=== PATIENT | male | born 1950 | race Caucasian/White ===

== ENCOUNTER 2020-11-04 21:58 | Emergency (ER) | payer MEDICARE, OTHER ==
[2020-11-04] MEDS ORDERED: diphenhydrAMINE 25 MG Cap PO ONE (23:27)
[2020-11-04] MEDS ORDERED: predniSONE 20 MG Tab PO ONE (23:27)
[2020-11-04] MEDS ORDERED: Famotidine 20 MG Tab PO ONE (23:27)
--- NOTE | 2020-11-04 23:35 | EDM.PDOC ---
ED HPI GENERAL MEDICAL PROBLEM - General Chief Complaint: Skin Complaint Stated Complaint: BEE STING R HAND SWOLLEN Time Seen by Provider: 11/04/20 23:10 Source of Information: Reports: Patient History Limitations: Reports: No Limitations - History of Present Illness INITIAL COMMENTS - FREE TEXT/NARRATIVE: Presents emergency room today secondary to a bee sting event that occurred tonight. He states he is unsure exactly where but he believes the bee stung him around the second metacarpal area on the dorsum of his hand he did have pain and swelling patient took CTM half a tablet which is his normal allergy medicine as well as 1 Benadryl capsule and used cold therapy to area. Because of the hand swelling and continued pain and discomfort he came to the emergency room for further evaluation and treatment PMH--CAD/stent placement, HLP, GERD, chronic low back pain with sciatica Meds--Prilosec multivitamin glucosamine costochondral right and Aleve atorvastatin gabapentin aspirin NKDA Tob/Drug--denies EtOH--daily glass of wine Patient has not had COVID infection, he reports having received his COVID immunization Onset: Today Right Hand Pain Score (Numeric/FACES): 2 - Related Data Allergies Allergy/AdvReac Type Severity Reaction Status Date / Time No Known Allergies Allergy Verified 11/04/20 22:49 Home Meds: Home Meds Gabapentin [Neurontin] 600 mg PO DAILY 11/04/20 [History] Omeprazole 40 mg PO ACBREAKFAST 11/04/20 [History] atorvaSTATin [Lipitor] 20 mg PO BEDTIME 11/04/20 [History] Past Medical History HEENT History: Reports: Hard of Hearing, Impaired Vision Cardiovascular History: Reports: Hypertension, Stents Gastrointestinal History: Reports: GERD Musculoskeletal History: Reports: Arthritis Psychiatric History: Reports: Anxiety - Infectious Disease History Infectious Disease History: Reports: Chicken Pox, Measles, Mumps - Past Surgical History Cardiovascular Surgical History: Reports: Coronary Artery Stent Musculoskeletal Surgical History: Reports: Hip Replacement, Other (See Below) Other Musculoskeletal Surgeries/Procedures:: sciatic back surgery Social & Family History - Tobacco Use Tobacco Use Status *Q: Never Tobacco User - Caffeine Use Caffeine Use: Reports: Coffee - Alcohol Use Days Per Week of Alcohol Use: 7 Number of Drinks Per Day: 1 Total Drinks Per Week: 7 - Recreational Drug Use Recreational Drug Use: No ED ROS GENERAL - Review of Systems Review Of Systems: Comprehensive ROS is negative, except as noted in HPI. Constitutional: Reports: No Symptoms HEENT: Reports: No Symptoms Respiratory: Reports: No Symptoms Cardiovascular: Reports: No Symptoms GI/Abdominal: Reports: No Symptoms Musculoskeletal: Reports: Hand Pain (swelling) ED EXAM, SKIN/RASH Exam: See Below Exam Limited By: No Limitations General Appearance: Alert, WD/WN, No Apparent Distress Eye Exam: Bilateral Eye: EOMI, Normal Inspection, PERRL Ears: Normal External Exam, Hearing Grossly Normal Nose: Normal Inspection Throat/Mouth: Normal Inspection, Normal Lips, Normal Voice, No Airway Compromise Head: Atraumatic, Normocephalic Neck: Normal Inspection, Supple, Non-Tender, Full Range of Motion Respiratory/Chest: No Respiratory Distress, Lungs Clear, Normal Breath Sounds. No: Respiratory Distress, Rhonchi, Wheezing, Accessory Muscle Use, Retractions Cardiovascular: Normal Peripheral Pulses, Regular Rate, Rhythm, No Edema, No Murmur Peripheral Pulses: 2+: Radial (L), Radial (R) (Male) Exam: Deferred Rectal (Males) Exam: Deferred Back Exam: Normal Inspection, Full Range of Motion Extremities: Normal Range of Motion, No Pedal Edema, Normal Capillary Refill, Other (Patient noted with right dorsum hand and finger swelling is no specific area or evidence of where sting occurred other than where patient indicates sensation along the second metacarpal area on the dorsum of his right hand. There is no erythema it is tender to touch) Neurological: Alert, Oriented, Normal Cognition, Normal Gait, No Motor/Sensory Deficits Psychiatric: Normal Affect, Normal Mood Skin: Warm, Dry, Intact, Normal Color Course - Vital Signs Text/Narrative:: Discussed with patient home care and continued management of a localized bee sting reaction. To include oral steroids Pepcid and Benadryl for the next 2 to 3 days and ice therapy. If patient has any worsening symptoms of concern he is recommended to follow-up with his primary care provider return to the ER for further evaluation lysed understanding agree with plan of care ready for discharge Last Recorded V/S: Last Vital Signs Temp 97.5 F 11/04/20 23:03 Pulse 95 11/04/20 23:03 Resp 16 11/04/20 23:03 BP 145/100 H 11/04/20 23:03 Pulse Ox 95 11/04/20 23:03 - Orders/Labs/Meds Orders: Active Orders 24 hr Category Date Time Status Famotidine [Pepcid] Med 11/04/20 23:27 Once 40 mg PO ONETIME ONE diphenhydrAMINE [Benadryl] Med 11/04/20 23:27 Once 25 mg PO ONETIME ONE predniSONE Med 11/04/20 23:27 Once 60 mg PO ONETIME ONE Departure - Departure Time of Disposition: 23:35 Disposition: Home, Self-Care 01 Condition: Good Clinical Impression: Bee sting reaction, Elevated blood pressure reading - Discharge Information *PRESCRIPTION DRUG MONITORING PROGRAM REVIEWED*: Not Applicable *COPY OF PRESCRIPTION DRUG MONITORING REPORT IN PATIENT ELISA: Not Applicable Instructions: How to Take Your Blood Pressure, [id number], Bee, Wasp, or Hornet Sting, Adult Referrals: Josette Gentile MD [Primary Care Provider] - Additional Instructions: It was noted that your blood pressure was elevated tonight in the emergency room. It is recommended that you follow-up with your primary care provider in the next 1 to 2 weeks in regards to this elevation. You have been provided a handout on home blood pressure readings should you have a home blood pressure cuff to use for this purpose It is recommended that you use Benadryl 1 to 2 tablets every 6 hours as per [id number] label for the next 2 to 3 days, Pepcid or famotidine 20 mg twice a day for the next 2 to 3 days this is also available [id number] in the section where stomach medications can be found. Additionally you have been provided a prescription for prednisone, since doses given so late tonight it is recommended that Wednesday's dose be taking in the late afternoon and Wednesdays dose be taken in the morning and from thereon after in the morning so as to dec rease sleep disturbance. You have any further concerns regarding area of bee sting worsening symptoms follow-up with your primary care provider return to the emergency room for further evaluation Sepsis Event Note (ED) - Evaluation Sepsis Screening Result: No Definite Risk - Focused Exam Vital Signs: Vital Signs Temp Pulse Resp BP Pulse Ox 11/04/20 23:03 97.5 F 95 16 145/100 H 95 - My Orders Last 24 Hours: My Active Orders 11/04/20 23:27 Famotidine [Pepcid] 40 mg PO ONETIME ONE diphenhydrAMINE [Benadryl] 25 mg PO ONETIME ONE predniSONE 60 mg PO ONETIME ONE - Assessment/Plan Last 24 Hours: My Active Orders 11/04/20 23:27 Famotidine [Pepcid] 40 mg PO ONETIME ONE diphenhydrAMINE [Benadryl] 25 mg PO ONETIME ONE predniSONE 60 mg PO ONETIME ONE
== END 2020-11-04 23:46 | disposition home or self-care (01) ==
LOC: JP.ED 21:58
DX: T63.441A Toxic effect of venom of bees, accidental (unintentional), initial encounter (principal); I10 Essential (primary) hypertension; K21.9 Gastro-esophageal reflux disease without esophagitis; Z79.82 Long term (current) use of aspirin; Z79.899 Other long term (current) drug therapy
CPT/HCPCS: 99282; A9270; J7512